=== PATIENT | female | born 1980 | race American Indian/Alaskan Native ===

== ENCOUNTER 2017-08-13 05:42 | Inpatient (IN) | payer BC, MEDICAID ==
[2017-08-13] MEDS ORDERED: LACTATED RINGERS 1,000 ML ONE ×4 (07:00→21:13)
[2017-08-13] MEDS ORDERED: LACTATED RINGERS 500 ML IV ONE (07:32)
[2017-08-13 08:10] LABS: Mean Corpuscular HGB Conc 33 % (30-34); Mean Corpuscular Hemoglobin 29 pg (28-32); Mean Corpuscular Volume 88 fl (79-97); Platelet Count 301 K/mm3 (140-440); Red Blood Count 3.76 M/mm3 (3.65-5.03); Red Cell Distribution Width 14.7 % (13.2-15.2)
[2017-08-13 08:20] LABS: Bilirubin,Urine NEG (Negative); Blood,Urine NEG (Negative); Color,Urine Yellow (Yellow); Mucus,Urine 1+ /HPF; Protein,Urine <15 mg/dL mg/dL (Negative); Urobilinogen,Urine < 2.0 mg/dL (<2.0)
[2017-08-13 08:27] LABS: Alanine Aminotransferase 11 units/L (7-56); Uric Acid 4.3 mg/dL (3.5-7.6)
[2017-08-13] MEDS ORDERED: SUBLIMAZE IV ONE (09:00)
[2017-08-13] MEDS ORDERED: LACTATED RINGERS 1,000 ML IV ONE ×2 (09:00)
--- NOTE | 2017-08-13 09:42 | History and Physical Report ---
History of Present Illness Date of examination: 08/13/17 Chief complaint: Contractions that started at 1a today History of present illness: Past History : 5 Term Births: 4 Living Children: 3 Para: 4 Aborta: 0 # 1 Delivery date: 1997 Weeks Gestation: term labor: no Delivery type: Anesthesia type: epidural Delivery location: [place] Sex: Male weight: 6#1 Comments: high b/p, abruption, child with CP, passed 2016 # 2 Delivery date: 2000 Weeks Gestation: term labor: no Delivery type: Anesthesia type: epidural Delivery location: [facility] Infant Sex: Male weight: 7#4 Comments: no complications # 3 Delivery date: 2001 Weeks Gestation: term labor: no Delivery type: Anesthesia type: epidural Delivery location: [place] Sex: Male weight: 6# Comments: no complications # 4 Delivery date: 2013 Weeks Gestation: term labor: no Delivery type: Anesthesia type: epidural Delivery location: [facility] Sex: Female weight: 7#7 Comments: no complications Past Medical History: htn- unknown med, managed by PCP Dr. 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 of genital herpes: no Partner hx. of genital herpes: no Rash, Viral, or Febrile illness since last LMP? no Varicella/Chicken Pox Status: Previous Disease Genetic History Congenital Heart Defect: Mom: no Dad: no Eliezer Disease: Mom: no Dad: no Thalassemia Mom: no Dad: no Neural Tube Defect Mom: no Dad: no Down's Syndrome Mom: no Dad: no Jame-Sachs Mom: no Dad: no Sickle Cell Disease/Trait Mom: no Dad: no Hemophilia Mom: no Dad: no Muscular Dystrophy Mom: no Dad: no Cystic Fibrosis Mom: no Dad: no Elina Chorea Mom: no Dad: no Mental Retardation Mom: no Dad: no Fragile X Mom: no Dad: no Other Genetic/Chromosomal Disorder Mom: no Dad: no Child w/other defect Mom: no Dad: no Enviromental Exposures Xray Exposure: no Medication, drug, or alcohol use since LMP: no Chemical/Other Exposure: no Exposure to Cat Liter: no Hx of Parvovirus (Fifth Disease): no Occupational Exposure to Children: none Active Medications (reviewed today): None Current Allergies (reviewed today): * ASPIRIN (Moderate) Past History - Obstetrical History Expected Date of Delivery: 09/15/17 (based on 20weeks US, confirmed by MFM) Actual Gestation: 35 Week(s) 2 Day(s) : 5 Para: 3 Hx # Term Pregnancies: 3 Medications and Allergies Allergies Allergy/AdvReac Type Severity Reaction Status Date / Time aspirin Allergy Hives Verified 05/08/15 14:11 Home Medications Medication Instructions Recorded Confirmed Last Taken Type Nifedipine 60 mg PO QDAY 08/13/17 08/13/17 08/12/17 10:00 History Active Meds: Active Medications Betamethasone Acet/Betameth SodPhos (Celestone Soluspan) 12 mg IM Q24HR [facility] Last Admin: 08/13/17 09:13 Dose: 12 mg Lactated Ringer's (Lactated Ringers) 1,000 mls @ 500 mls/hr IV ONCE ONE Stop: 08/13/17 10:59 Last Admin: 08/13/17 09:35 Dose: 500 mls/hr Lactated Ringer's (Lactated Ringers) 1,000 mls @ 999 mls/hr IV BOLUS ONE Stop: 08/13/17 10:00 Nifedipine (Procardia Xl) 60 mg PO QDAY [facility] Review of Systems All systems: negative Genitourinary: contractions - Vital Signs Vital signs: Vital Signs Pulse BP 71 165/102 08/13/17 07:30 08/13/17 07:30 Temp Pulse Resp BP Pulse Ox 98.6 F 85 18 135/95 100 08/13/17 07:36 08/13/17 09:32 08/13/17 09:30 08/13/17 09:32 08/13/17 08:12 - Physical Exam Breasts: Positive: deferred Cardiovascular: Regular rate Lungs: Positive: Normal air movement Abdomen: Positive: normal appearance, soft Genitourinary (Female): Positive: normal external genitalia, normal perenium Vulva: both: normal Uterus: Positive: enlarged Anus/Rectum: Positive: normal perianal skin Extremities: Positive: normal. Negative: tenderness, edema Deep Tendon Reflex Grade: Normal +2 - Obstetrical FHR: category 1 Uterine Contraction Monitor Mode: External Cervical Dilatation: 3 (per RN) Uterine Contraction Pattern: Irregular Uterine Contraction Intensity: Moderate Results Result Diagrams: 08/13/17 07:50 08/13/17 07:50 Abnormal lab results 08/13/17 08/13/17 Range/Units 07:50 07:50 Creatinine 0.4 L (0.7-1.2) mg/dL Lactate Dehydrogenase 260 H (91-180) units/L U Epithel Cells (Auto) 14.0 H (0-13.0) /HPF All other labs normal. Assessment and Plan - Patient Problems (1) 35 weeks gestation of Current Visit: Yes Status: Acute (2) contractions Current Visit: Yes Status: Acute Plan to address problem: 3cm, will observe for now. Proceed with steroids (3) Smoker Current Visit: Yes Status: Chronic (4) Late care Current Visit: Yes Status: Acute (5) Hypertension affecting in third trimester Current Visit: Yes Status: Chronic Plan to address problem: Elevated BP's noted, normal PIH labs; she has not taken Procardia today.
[2017-08-13] MEDS ORDERED: CELESTONE SOLUSPAN IM SCH (10:00)
[2017-08-13] MEDS ORDERED: PROCARDIA XL PO SCH (10:00)
--- NOTE | 2017-08-13 10:22 | Ultrasound Report ---
History: Presentation. Findings: Gestation: Single Position: Cephalic Heart Rate: 139 BPM Cervical length: cm (Normal > 3 cm)
--- NOTE | 2017-08-13 14:58 | Progress Note ---
Assessment and Plan - Patient Problems (1) 35 weeks gestation of Current Visit: Yes Status: Acute (2) contractions Current Visit: Yes Status: Acute Plan to address problem: No cervical change, continue close observation (3) Smoker Current Visit: Yes Status: Chronic (4) Late care Current Visit: Yes Status: Acute (5) Hypertension affecting in third trimester Current Visit: Yes Status: Chronic Plan to address problem: BP's continue to be elevated after taking Procardia, will proceed with 24hr urine collection Subjective - Subjective Date of service: 08/13/17 Principal diagnosis: IUP@ 35weeks, PTC, hypertension Interval history: Past Surgical History: 07/2016 ex-lap LSO ovarian torsion Patient reports: contractions, no new complaints Objective - Vital Signs Vital Signs: Vital Signs - 12hr 08/13/17 08/13/17 08/13/17 07:30 07:31 07:33 Temperature Pulse Rate 71 74 70 Respiratory Rate Blood Pressure 165/102 154/89 Blood Pressure [Right] O2 Sat by Pulse 98 Oximetry 08/13/17 08/13/17 08/13/17 07:36 07:51 07:52 Temperature 98.6 F Pulse Rate 71 67 72 Respiratory 20 Rate Blood Pressure 151/83 Blood Pressure 151/83 [Right] O2 Sat by Pulse 98 98 Oximetry 08/13/17 08/13/17 08/13/17 07:57 08:02 08:07 Temperature Pulse Rate 78 78 71 Respiratory Rate Blood Pressure 144/83 Blood Pressure [Right] O2 Sat by Pulse 98 99 100 Oximetry 08/13/17 08/13/17 08/13/17 08:12 08:16 08:31 Temperature Pulse Rate 74 88 75 Respiratory Rate Blood Pressure 152/83 164/92 Blood Pressure [Right] O2 Sat by Pulse 100 Oximetry 08/13/17 08/13/17 08/13/17 08:46 09:01 09:30 Temperature Pulse Rate 77 71 Respiratory 18 Rate Blood Pressure 162/103 147/97 135/95 Blood Pressure [Right] O2 Sat by Pulse Oximetry 08/13/17 08/13/17 08/13/17 09:32 10:05 10:06 Temperature 97.1 F L Pulse Rate 85 70 70 Respiratory 20 Rate Blood Pressure 135/95 160/84 Blood Pressure 160/84 [Right] O2 Sat by Pulse 93 95 Oximetry 05/20/18 05/20/18 05/2018 10:11 10:16 10:17 Temperature Pulse Rate 67 74 75 Respiratory Rate Blood Pressure Blood Pressure [Right] O2 Sat by Pulse 94 95 94 Oximetry 05/20/18 05/20/18 05/20/18 10:21 10:22 10:23 Temperature Pulse Rate 75 61 66 Respiratory Rate Blood Pressure 141/89 Blood Pressure [Right] O2 Sat by Pulse 96 94 Oximetry 20/18 05/20/18 05/20/18 10:24 10:26 10:31 Temperature Pulse Rate 69 68 65 Respiratory Rate Blood Pressure 139/95 Blood Pressure [Right] O2 Sat by Pulse 95 97 Oximetry 20/18 05/20/18 05/20/18 10:36 10:37 10:39 Temperature Pulse Rate 70 74 86 Respiratory Rate Blood Pressure 142/90 Blood Pressure [Right] O2 Sat by Pulse 96 94 Oximetry 20 05/20/18 05/20/18 10:41 10:46 10:51 Temperature Pulse Rate 67 72 76 Respiratory Rate Blood Pressure Blood Pressure [Right] O2 Sat by Pulse 96 95 98 Oximetry 18 05/20/18 05/2018 10:52 10:56 11:01 Temperature Pulse Rate 74 76 80 Respiratory Rate Blood Pressure 161/85 Blood Pressure [Right] O2 Sat by Pulse 97 97 Oximetry 18 05/20/18 05/2018 11:06 11:07 11:11 Temperature Pulse Rate 70 69 76 Respiratory Rate Blood Pressure 167/100 Blood Pressure [Right] O2 Sat by Pulse 98 98 Oximetry 08/13/17 05/20/18 05/2018 11:16 11:21 11:26 Temperature Pulse Rate 67 78 74 Respiratory Rate Blood Pressure 171/98 Blood Pressure [Right] O2 Sat by Pulse 98 97 98 Oximetry 20/18 05/20/18 05/20/18 11:31 11:50 11:51 Temperature Pulse Rate 74 83 68 Respiratory Rate Blood Pressure 140/90 Blood Pressure [Right] O2 Sat by Pulse 98 97 Oximetry 20/18 05/20/18 05/20/18 11:55 12:00 12:05 Temperature Pulse Rate 75 93 H 77 Respiratory Rate Blood Pressure Blood Pressure [Right] O2 Sat by Pulse 97 98 98 Oximetry 05/2008/13/17 08/13/17 12:10 12:15 12:20 Temperature Pulse Rate 65 70 65 Respiratory Rate Blood Pressure Blood Pressure [Right] O2 Sat by Pulse 100 98 97 Oximetry 08/13/1718 / 12:25 12:30 12:35 Temperature Pulse Rate 67 67 68 Respiratory Rate Blood Pressure Blood Pressure [Right] O2 Sat by Pulse 98 98 100 Oximetry 08/13/1718 / 12:37 12:40 12:44 Temperature Pulse Rate 87 67 71 Respiratory Rate Blood Pressure Blood Pressure [Right] O2 Sat by Pulse 94 96 92 Oximetry 08/13/17/20/18 05/20 12:45 12:50 12:52 Temperature Pulse Rate 72 75 75 Respiratory Rate Blood Pressure Blood Pressure [Right] O2 Sat by Pulse 95 93 94 Oximetry 08/13/17/20/18 / 12:53 12:55 13:00 Temperature Pulse Rate 75 79 77 Respiratory Rate Blood Pressure 121/65 Blood Pressure [Right] O2 Sat by Pulse 93 94 Oximetry 08/13/17 08/13/17 08/13/17 13:05 13:07 13:10 Temperature Pulse Rate 76 77 82 Respiratory Rate Blood Pressure Blood Pressure [Right] O2 Sat by Pulse 93 93 93 Oximetry 08/13/1718 08/13/17 13:15 13:20 13:21 Temperature Pulse Rate 79 68 83 Respiratory Rate Blood Pressure Blood Pressure [Right] O2 Sat by Pulse 93 96 93 Oximetry 08/13/1718 08/13/17 13:25 13:30 13:34 Temperature Pulse Rate 77 76 76 Respiratory Rate Blood Pressure Blood Pressure [Right] O2 Sat by Pulse 91 93 94 Oximetry 08/13/1720/18 052018 13:35 13:40 13:45 Temperature Pulse Rate 75 76 77 Respiratory Rate Blood Pressure Blood Pressure [Right] O2 Sat by Pulse 94 94 94 Oximetry 08/13/17/20/18 20 13:50 13:52 13:55 Temperature Pulse Rate 80 80 76 Respiratory Rate Blood Pressure 114/58 Blood Pressure [Right] O2 Sat by Pulse 94 93 Oximetry 08/13/1708/13/18 / 13:56 14:00 14:04 Temperature Pulse Rate 76 84 76 Respiratory Rate Blood Pressure Blood Pressure [Right] O2 Sat by Pulse 94 95 94 Oximetry 08/13/17 08/13/17 08/13/17 14:05 14:09 14:10 Temperature Pulse Rate 77 74 74 Respiratory Rate Blood Pressure Blood Pressure [Right] O2 Sat by Pulse 94 94 93 Oximetry 08/13/17 08/13/17 08/13/17 14:15 14:20 14:25 Temperature Pulse Rate 70 72 73 Respiratory Rate Blood Pressure Blood Pressure [Right] O2 Sat by Pulse 93 95 97 Oximetry 08/13/17 08/13/17 08/13/17 14:30 14:36 14:41 Temperature Pulse Rate 73 68 69 Respiratory Rate Blood Pressure Blood Pressure [Right] O2 Sat by Pulse 97 99 97 Oximetry 08/13/17 08/13/17 08/13/17 14:46 14:51 14:53 Temperature Pulse Rate 81 84 77 Respiratory Rate Blood Pressure 156/73 Blood Pressure [Right] O2 Sat by Pulse 97 97 Oximetry 08/13/17 14:56 Temperature Pulse Rate 72 Respiratory Rate Blood Pressure Blood Pressure [Right] O2 Sat by Pulse 97 Oximetry - Exam Breasts: deferred Lungs: Normal air movement Abdomen: Present: normal appearance, soft. Absent: tenderness Vulva: both: normal Uterus: Absent: tenderness FHR: category 1 Uterine Contraction Monitor Mode: External Cervical Dilatation: 3 Cervical Effacement Percentage: 50 station: -3, soft, posterior Uterine Contraction Pattern: Irregular Extremities: normal Deep Tendon Reflex Grade: Normal +2 - Labs Labs: Abnormal Labs 08/13/17 08/13/17 07:50 07:50 Creatinine 0.4 L Lactate Dehydrogenase 260 H U Epithel Cells (Auto) 14.0 H Laboratory Results - last 24 hr 08/13/17 08/13/17 08/13/17 07:50 07:50 07:50 WBC 7.0 RBC 3.76 Hgb 11.0 Hct 33.0 MCV 88 MCH 29 MCHC 33 RDW 14.7 Plt Count 301 Creatinine 0.4 L Estimated GFR > 60 Uric Acid 4.3 AST 27 ALT 11 Lactate Dehydrogenase 260 H Urine Color Yellow Urine Turbidity Clear Urine pH 6.0 Ur Specific [place] 1.027 Urine Protein <15 mg/dl Urine Glucose (UA) Neg Urine Ketones Neg Urine Blood Neg Urine Nitrite Neg Urine Bilirubin Neg Urine Urobilinogen < 2.0 Ur Leukocyte Esterase Neg Urine WBC (Auto) 1.0 Urine RBC (Auto) 2.0 U Epithel Cells (Auto) 14.0 H Urine Mucus 1+ Blood Type Antibody Screen 08/13/17 07:50 WBC RBC Hgb Hct MCV MCH MCHC RDW Plt Count Creatinine Estimated GFR Uric Acid AST ALT Lactate Dehydrogenase Urine Color Urine Turbidity Urine pH Ur Specific [place] Urine Protein Urine Glucose (UA) Urine Ketones Urine Blood Urine Nitrite Urine Bilirubin Urine Urobilinogen Ur Leukocyte Esterase Urine WBC (Auto) Urine RBC (Auto) U Epithel Cells (Auto) Urine Mucus Blood Type B POSITIVE Antibody Screen Negative
[2017-08-13] MEDS ORDERED: TYLENOL PO PRN ×3 (16:01→23:47)
[2017-08-13] MEDS ORDERED: STADOL IV ONE ×2 (16:09→19:50)
--- NOTE | 2017-08-13 19:54 | Event Note ---
Date: 08/13/17 cervical now /-2 by RN, b/c she's on Procardia will hold MgSO4 and continue close observation.
--- NOTE | 2017-08-13 21:06 | Progress Note ---
Assessment and Plan Anticipate VD - Patient Problems (1) 35 weeks gestation of Current Visit: Yes Status: Acute (2) contractions Current Visit: Yes Status: Acute (3) Smoker Current Visit: Yes Status: Chronic (4) Late care Current Visit: Yes Status: Acute (5) Hypertension affecting in third trimester Current Visit: Yes Status: Chronic Subjective - Subjective Date of service: 08/13/17 Principal diagnosis: IUP@ 35weeks, PTC, hypertension Interval history: C/o worsening contractions, unresponsive to stadol Patient reports: contractions, no new complaints Objective - Vital Signs Vital Signs: Vital Signs - 12hr 08/13/17 08/13/17 08/13/17 09:30 09:32 10:05 Temperature Pulse Rate 85 70 Respiratory 18 Rate Blood Pressure 135/95 135/95 Blood Pressure [Right] O2 Sat by Pulse 93 Oximetry 08/13/17 08/13/17 08/13/17 10:06 10:11 10:16 Temperature 97.1 F L Pulse Rate 70 67 74 Respiratory 20 Rate Blood Pressure 160/84 Blood Pressure 160/84 [Right] O2 Sat by Pulse 95 94 95 Oximetry 08/13/17 08/13/17 08/13/17 10:17 10:21 10:22 Temperature Pulse Rate 75 75 61 Respiratory Rate Blood Pressure 141/89 Blood Pressure [Right] O2 Sat by Pulse 94 96 Oximetry 08/13/17 08/13/17 08/13/17 10:23 10:24 10:26 Temperature Pulse Rate 66 69 68 Respiratory Rate Blood Pressure 139/95 Blood Pressure [Right] O2 Sat by Pulse 94 95 Oximetry 08/13/17 08/13/17 08/13/17 10:31 10:36 10:37 Temperature Pulse Rate 65 70 74 Respiratory Rate Blood Pressure 142/90 Blood Pressure [Right] O2 Sat by Pulse 97 96 Oximetry 08/13/17 08/13/17 08/13/17 10:39 10:41 10:46 Temperature Pulse Rate 86 67 72 Respiratory Rate Blood Pressure Blood Pressure [Right] O2 Sat by Pulse 94 96 95 Oximetry 08/13/17 08/13/17 08/13/17 10:51 10:52 10:56 Temperature Pulse Rate 76 74 76 Respiratory Rate Blood Pressure 161/85 Blood Pressure [Right] O2 Sat by Pulse 98 97 Oximetry 08/13/17 08/13/17 08/13/17 11:01 11:06 11:07 Temperature Pulse Rate 80 70 69 Respiratory Rate Blood Pressure 167/100 Blood Pressure [Right] O2 Sat by Pulse 97 98 Oximetry 08/13/1718 / 11:11 11:16 11:21 Temperature Pulse Rate 76 67 78 Respiratory Rate Blood Pressure 171/98 Blood Pressure [Right] O2 Sat by Pulse 98 98 97 Oximetry 08/13/1720/18 / 11:26 11:31 11:50 Temperature Pulse Rate 74 74 83 Respiratory Rate Blood Pressure Blood Pressure [Right] O2 Sat by Pulse 98 98 97 Oximetry 08/13/17/20/18 / 11:51 11:55 12:00 Temperature Pulse Rate 68 75 93 H Respiratory Rate Blood Pressure 140/90 Blood Pressure [Right] O2 Sat by Pulse 97 98 Oximetry 08/13/1718 / 12:05 12:10 12:15 Temperature Pulse Rate 77 65 70 Respiratory Rate Blood Pressure Blood Pressure [Right] O2 Sat by Pulse 98 100 98 Oximetry 08/13/17/18 08/13/17 12:20 12:25 12:30 Temperature Pulse Rate 65 67 67 Respiratory Rate Blood Pressure Blood Pressure [Right] O2 Sat by Pulse 97 98 98 Oximetry 08/13/17 08/13/17 08/13/17 12:35 12:37 12:40 Temperature Pulse Rate 68 87 67 Respiratory Rate Blood Pressure Blood Pressure [Right] O2 Sat by Pulse 100 94 96 Oximetry 08/13/1718 08/13/17 12:44 12:45 12:50 Temperature Pulse Rate 71 72 75 Respiratory Rate Blood Pressure Blood Pressure [Right] O2 Sat by Pulse 92 95 93 Oximetry 08/13/17 05/20/18 20 12:52 12:53 12:55 Temperature Pulse Rate 75 75 79 Respiratory Rate Blood Pressure 121/65 Blood Pressure [Right] O2 Sat by Pulse 94 93 Oximetry 08/13/17 05/20/18 /20 13:00 13:05 13:07 Temperature Pulse Rate 77 76 77 Respiratory Rate Blood Pressure Blood Pressure [Right] O2 Sat by Pulse 94 93 93 Oximetry 08/13/17 05/20/18 08/13/17 13:10 13:15 13:20 Temperature Pulse Rate 82 79 68 Respiratory Rate Blood Pressure Blood Pressure [Right] O2 Sat by Pulse 93 93 96 Oximetry 08/13/17/18 08/13/17 13:21 13:25 13:30 Temperature Pulse Rate 83 77 76 Respiratory Rate Blood Pressure Blood Pressure [Right] O2 Sat by Pulse 93 91 93 Oximetry 08/13/17//18 / 13:34 13:35 13:40 Temperature Pulse Rate 76 75 76 Respiratory Rate Blood Pressure Blood Pressure [Right] O2 Sat by Pulse 94 94 94 Oximetry 08/13/17/18 / 13:45 13:50 13:52 Temperature Pulse Rate 77 80 80 Respiratory Rate Blood Pressure 114/58 Blood Pressure [Right] O2 Sat by Pulse 94 94 Oximetry 08/13/17 08/13/17/ 13:55 13:56 14:00 Temperature Pulse Rate 76 76 84 Respiratory Rate Blood Pressure Blood Pressure [Right] O2 Sat by Pulse 93 94 95 Oximetry 08/13/17 08/13/17 08/13/17 14:04 14:05 14:09 Temperature Pulse Rate 76 77 74 Respiratory Rate Blood Pressure Blood Pressure [Right] O2 Sat by Pulse 94 94 94 Oximetry 08/13/17 08/13/17 08/13/17 14:10 14:15 14:20 Temperature Pulse Rate 74 70 72 Respiratory Rate Blood Pressure Blood Pressure [Right] O2 Sat by Pulse 93 93 95 Oximetry 08/13/17 08/13/17/ 14:25 14:30 14:36 Temperature Pulse Rate 73 73 68 Respiratory Rate Blood Pressure Blood Pressure [Right] O2 Sat by Pulse 97 97 99 Oximetry 08/13/17 08/13/17 08/13/17 14:41 14:46 14:51 Temperature Pulse Rate 69 81 84 Respiratory Rate Blood Pressure Blood Pressure [Right] O2 Sat by Pulse 97 97 97 Oximetry 08/13/17 08/13/17 08/13/17 14:53 14:56 15:01 Temperature Pulse Rate 77 72 73 Respiratory Rate Blood Pressure 156/73 Blood Pressure [Right] O2 Sat by Pulse 97 97 Oximetry 08/13/17 08/13/17/ 15:06 15:11 15:16 Temperature Pulse Rate 69 67 66 Respiratory Rate Blood Pressure Blood Pressure [Right] O2 Sat by Pulse 97 98 98 Oximetry 08/13/17 08/13/17 08/13/17 15:21 15:26 15:27 Temperature Pulse Rate 66 69 83 Respiratory Rate Blood Pressure Blood Pressure [Right] O2 Sat by Pulse 98 97 91 Oximetry 08/13/17 08/13/17 08/13/17 15:31 15:36 15:41 Temperature Pulse Rate 72 67 69 Respiratory Rate Blood Pressure Blood Pressure [Right] O2 Sat by Pulse 98 97 98 Oximetry 08/13/17 08/13/17 08/13/17 15:46 15:54 15:55 Temperature Pulse Rate 76 68 65 Respiratory Rate Blood Pressure 143/82 Blood Pressure [Right] O2 Sat by Pulse 98 97 Oximetry 08/13/17 08/13/17 08/13/17 15:59 16:00 16:05 Temperature Pulse Rate 71 66 76 Respiratory Rate Blood Pressure Blood Pressure [Right] O2 Sat by Pulse 92 92 96 Oximetry 08/13/17 08/13/17 08/13/17 16:09 16:10 16:15 Temperature Pulse Rate 72 63 74 Respiratory Rate Blood Pressure Blood Pressure [Right] O2 Sat by Pulse 93 97 96 Oximetry 08/13/17 08/13/17 08/13/17 16:20 16:22 16:25 Temperature Pulse Rate 70 79 74 Respiratory Rate Blood Pressure Blood Pressure [Right] O2 Sat by Pulse 100 94 97 Oximetry 08/13/17 08/13/17 08/13/17 16:30 16:33 16:35 Temperature Pulse Rate 83 73 Respiratory 18 Rate Blood Pressure Blood Pressure [Right] O2 Sat by Pulse 97 96 Oximetry 08/13/17 08/13/17 08/13/17 16:45 16:46 16:51 Temperature Pulse Rate 69 78 73 Respiratory Rate Blood Pressure Blood Pressure [Right] O2 Sat by Pulse 94 96 94 Oximetry 08/13/17 08/13/17 08/13/17 16:52 16:56 16:57 Temperature Pulse Rate 73 68 73 Respiratory Rate Blood Pressure 150/79 Blood Pressure [Right] O2 Sat by Pulse 95 94 Oximetry 08/13/17 08/13/17 08/13/17 17:01 17:04 17:06 Temperature Pulse Rate 72 65 70 Respiratory Rate Blood Pressure Blood Pressure [Right] O2 Sat by Pulse 94 94 93 Oximetry 08/13/17 08/13/17 08/13/17 17:11 17:14 17:16 Temperature Pulse Rate 67 71 70 Respiratory Rate Blood Pressure Blood Pressure [Right] O2 Sat by Pulse 93 93 93 Oximetry 08/13/17 08/13/17 08/13/17 17:21 17:26 17:31 Temperature Pulse Rate 75 72 70 Respiratory Rate Blood Pressure Blood Pressure [Right] O2 Sat by Pulse 93 92 92 Oximetry 08/13/17 08/13/17 08/13/17 17:36 17:41 17:46 Temperature Pulse Rate 78 72 75 Respiratory Rate Blood Pressure Blood Pressure [Right] O2 Sat by Pulse 90 92 90 Oximetry 08/13/17 08/13/17 08/13/17 17:51 17:52 17:56 Temperature Pulse Rate 69 67 72 Respiratory Rate Blood Pressure 153/86 Blood Pressure [Right] O2 Sat by Pulse 93 92 Oximetry 08/13/17 08/13/17 08/13/17 18:01 18:02 18:06 Temperature Pulse Rate 74 74 72 Respiratory Rate Blood Pressure Blood Pressure [Right] O2 Sat by Pulse 95 94 95 Oximetry 08/13/17 08/13/17 08/13/17 18:11 18:14 18:16 Temperature Pulse Rate 73 60 68 Respiratory Rate Blood Pressure Blood Pressure [Right] O2 Sat by Pulse 95 92 96 Oximetry 08/13/17 08/13/17 08/13/17 18:19 18:21 18:26 Temperature Pulse Rate 83 66 91 H Respiratory Rate Blood Pressure Blood Pressure [Right] O2 Sat by Pulse 93 97 96 Oximetry 08/13/17 08/13/17 08/13/17 18:31 18:36 18:40 Temperature Pulse Rate 62 85 60 Respiratory Rate Blood Pressure Blood Pressure [Right] O2 Sat by Pulse 69 L 100 73 L Oximetry 08/13/17 08/13/17 08/13/17 18:41 18:50 18:51 Temperature Pulse Rate 81 70 70 Respiratory Rate Blood Pressure Blood Pressure [Right] O2 Sat by Pulse 86 94 93 Oximetry 08/13/17 08/13/17 08/13/17 18:52 18:56 19:01 Temperature Pulse Rate 71 77 84 Respiratory Rate Blood Pressure 132/71 Blood Pressure [Right] O2 Sat by Pulse 94 98 Oximetry 08/13/17 08/13/17 08/13/17 19:04 19:06 19:11 Temperature Pulse Rate 83 81 75 Respiratory Rate Blood Pressure Blood Pressure [Right] O2 Sat by Pulse 94 93 96 Oximetry 08/13/17 08/13/17 08/13/17 19:14 19:16 19:21 Temperature Pulse Rate 91 H 80 75 Respiratory Rate Blood Pressure Blood Pressure [Right] O2 Sat by Pulse 93 96 94 Oximetry 08/13/17 08/13/17 08/13/17 19:23 19:26 19:31 Temperature Pulse Rate 96 H 80 84 Respiratory Rate Blood Pressure Blood Pressure [Right] O2 Sat by Pulse 93 96 100 Oximetry 08/13/17 08/13/17 08/13/17 19:34 19:36 19:38 Temperature 98.3 F Pulse Rate 79 73 78 Respiratory 22 Rate Blood Pressure 135/65 Blood Pressure 135/65 [Right] O2 Sat by Pulse 94 96 97 Oximetry 08/13/17 08/13/17 08/13/17 19:41 19:46 19:51 Temperature Pulse Rate 76 76 79 Respiratory Rate Blood Pressure Blood Pressure [Right] O2 Sat by Pulse 97 96 94 Oximetry 08/13/17 08/13/17 08/13/17 19:52 19:56 19:59 Temperature Pulse Rate 75 79 72 Respiratory Rate Blood Pressure 152/70 Blood Pressure [Right] O2 Sat by Pulse 98 93 Oximetry 08/13/17 08/13/17 08/13/17 20:01 20:02 20:06 Temperature Pulse Rate 78 84 Respiratory 22 Rate Blood Pressure Blood Pressure [Right] O2 Sat by Pulse 91 92 Oximetry 08/13/17 08/13/17 08/13/17 20:11 20:15 20:16 Temperature Pulse Rate 76 74 73 Respiratory Rate Blood Pressure Blood Pressure [Right] O2 Sat by Pulse 93 94 94 Oximetry 08/13/17 08/13/17 08/13/17 20:20 20:21 20:26 Temperature Pulse Rate 76 89 80 Respiratory Rate Blood Pressure Blood Pressure [Right] O2 Sat by Pulse 94 94 92 Oximetry 08/13/17 08/13/17 08/13/17 20:31 20:32 20:36 Temperature Pulse Rate 80 76 Respiratory 14 Rate Blood Pressure Blood Pressure [Right] O2 Sat by Pulse 94 93 Oximetry 08/13/17 08/13/17 08/13/17 20:52 20:56 20:57 Temperature Pulse Rate 92 H 97 H 123 H Respiratory Rate Blood Pressure 137/85 Blood Pressure [Right] O2 Sat by Pulse 93 88 Oximetry 08/13/17 21:02 Temperature Pulse Rate 102 H Respiratory Rate Blood Pressure Blood Pressure [Right] O2 Sat by Pulse 92 Oximetry - Exam Breasts: deferred Lungs: Normal air movement Abdomen: Present: soft Vulva: both: normal FHR: category 2 Uterine Contraction Monitor Mode: External Cervical Dilatation: 6 (after verbal consent AROM with ISE placed without difficulty, scant clear) Cervical Effacement Percentage: 90 station: -1 Uterine Contraction Pattern: Irregular - Labs Labs: Abnormal Labs 08/13/17 08/13/17 07:50 07:50 Creatinine 0.4 L Lactate Dehydrogenase 260 H U Epithel Cells (Auto) 14.0 H Laboratory Results - last 24 hr 08/13/17 08/13/17 08/13/17 07:50 07:50 07:50 WBC 7.0 RBC 3.76 Hgb 11.0 Hct 33.0 MCV 88 MCH 29 MCHC 33 RDW 14.7 Plt Count 301 Creatinine 0.4 L Estimated GFR > 60 Uric Acid 4.3 AST 27 ALT 11 Lactate Dehydrogenase 260 H Urine Color Yellow Urine Turbidity Clear Urine pH 6.0 Ur Specific [place] 1.027 Urine Protein <15 mg/dl Urine Glucose (UA) Neg Urine Ketones Neg Urine Blood Neg Urine Nitrite Neg Urine Bilirubin Neg Urine Urobilinogen < 2.0 Ur Leukocyte Esterase Neg Urine WBC (Auto) 1.0 Urine RBC (Auto) 2.0 U Epithel Cells (Auto) 14.0 H Urine Mucus 1+ Blood Type Antibody Screen 08/13/17 07:50 WBC RBC Hgb Hct MCV MCH MCHC RDW Plt Count Creatinine Estimated GFR Uric Acid AST ALT Lactate Dehydrogenase Urine Color Urine Turbidity Urine pH Ur Specific [place] Urine Protein Urine Glucose (UA) Urine Ketones Urine Blood Urine Nitrite Urine Bilirubin Urine Urobilinogen Ur Leukocyte Esterase Urine WBC (Auto) Urine RBC (Auto) U Epithel Cells (Auto) Urine Mucus Blood Type B POSITIVE Antibody Screen Negative
[2017-08-13] MEDS ORDERED: PITOCin/NS 20 UNIT/1000ML DRIP 20,000 MILLIUNITS/1,000 ML BAG IV ONE (21:14)
[2017-08-13] MEDS ORDERED: BRETHINE ONE (21:30)
[2017-08-13] MEDS ORDERED: BICITRA ONE (21:33)
[2017-08-13] MEDS ORDERED: PEPCID IV ONE ×2 (21:34→21:40)
[2017-08-13] MEDS ORDERED: REGLAN ONE (21:34)
[2017-08-13] MEDS ORDERED: ePHEDrine SULFATE ONE (21:44)
[2017-08-13] MEDS ORDERED: ZOFRAN ONE (21:51)
[2017-08-13] MEDS ORDERED: NEO SYNEPHRINE/NS Syringe(OR USE) IV ONE (21:51)
[2017-08-13] MEDS ORDERED: SUBLIMAZE ONE (21:57)
[2017-08-13] MEDS ORDERED: DIPRIVAN 10 MG/ML IV ONE (21:57)
--- NOTE | 2017-08-13 23:11 | Operative Report ---
Operative Report Operative Report: Date: 08/13/2017 Preoperative diagnosis: 1. Intrauterine at 35 weeks and 2 days 2. labor 3. Nonreassuring heart rate tracing 4. Chronic hypertension 5. Smoker 6. Late care Postoperative diagnosis: 1. Intrauterine at 35 weeks and 2 days 2. labor 3. Nonreassuring heart rate tracing, tight body cord 4. Chronic hypertension 5. Smoker 6. Late care Procedure: Low uterine transverse incision for delivery Surgeon: Caprice Valdivia MD Numerical Tool Programmer: Jose Mims Anesthesia: Spinal epidural Anesthesiologist: Dr. Webster Estimated blood loss: 500 mL Urine out: [] mL Findings: Live born female . Weight 5 lbs. 12 oz. Apgars 8 at 1 minute and 8 at 9 minutes. Uterus grossly normal, thin adhesions noted involving the right tube, grossly normal right ovary, absent left tube and ovary consistent with patient's past surgical history Procedure: Patient was checked and found to be 6 cm. She was very uncomfortable and moving around in the bed. It was difficult to monitor the baby, verbal consent was obtained, artificial rupture of membranes was performed and ISE was placed. Heart tones are sporadic and intermittently reassuring. The decision was made to attempt an epidural however patient complained of pressure. She was 7 cm however still -2. heart tones decreased to the 60s to 80s without response to intrauterine resuscitative measures. The decision was made to proceed with delivery. On arrival to the OR heart tones were noted to be 110s to 130s and therefore she was placed in the sitting position and the epidural was completed. During epidural placement and multiple variable decelerations were noted and once she was placed the supine position there was still no cervical change. The decision was made to proceed with delivery. She was then placed in the left lateral tilt position, and prepped and draped in the usual sterile fashion. Timeout was performed, and an appropriate level of anesthesia was noted, a Pfannenstiel incision was made and extended to the fascia which was incised and extended in the lateral directions. The overlying fascia was sharply dissected away from the underlying rectus muscles in the superior and inferior directions. The midline was entered bluntly. The vesicouterine fold was incised and with blunt dissection the bladder flap was created. A transverse incision was made in the lower uterine segment and extended in superiolateral direction with finger fractionation. Clear fluid was noted. The infant was delivered from cephalic position. Mouth and nose were bulb suctioned. Spontaneous cry and excellent tone were noted. Cord was doubly clamped and cut. The was given to /resuscitation team present. The placenta was manually extracted in order to be sent to pathology. The uterus was then exteriorized and cleared of any further products of conception or placental tissue. The incision was reapproximated using 0 Vicryl in a running interlocking stitch. The incision was further reinforced with suture of 0 Vicryl in imbricating fashion. Once hemostasis was noted, the uterus was allowed back into the pelvic cavity. The pelvis was irrigated with warm normal saline. Again hemostasis was noted . Surgicel applied for further hemostasis. Interceed was then placed to prevent adhesions. Then attention was turned to the rectus muscles. The rectus muscles reapproximated using 0 Vicryl in a simple interrupted stitch x 3. Once hemostasis was noted, the fascia was reapproximated using 0 Vicryl running stitch fashion. Subcuticular adipose tissue was reapproximated using 3-0 Vicryl interrupted to single stitch 3. Once hemostasis was noted skin incision was reapproximated using 4-0 Vicryl on a Lee needle in a subcuticular manner. Counts were correct 3. Patient tolerated procedure well state recovery room in stable condition.
[2017-08-13] MEDS ORDERED: LANSINOH TP PRN (23:47)
[2017-08-13] MEDS ORDERED: CYTOTEC PR PRN (23:47)
[2017-08-13] MEDS ORDERED: PITOCin/NS 20 UNIT/1000ML DRIP 20 UNITS/1,000 ML BAG IV SCH (23:47)
[2017-08-13] MEDS ORDERED: HEMABATE IM PRN (23:47)
[2017-08-13] MEDS ORDERED: TYLENOL PR PRN (23:47)
[2017-08-13] MEDS ORDERED: TUCKS PAD TP PRN (23:47)
[2017-08-13] MEDS ORDERED: DILAUDID IV PRN (23:47)
[2017-08-13] MEDS ORDERED: DILAUDID ONE (23:47)
[2017-08-13] MEDS ORDERED: D5LR 1,000 ML IV SCH (23:47)
[2017-08-13] MEDS ORDERED: SODIUM CHLORIDE FLUSH SYRINGE 10 ML IV NR (23:47)
[2017-08-13] MEDS ORDERED: ANCEF/NS 1 GM/50 ML 1 GM/50 ML BAG IV SCH (23:47)
[2017-08-13] MEDS ORDERED: MORPHINE IV PRN (23:47)
[2017-08-13] MEDS ORDERED: NARCAN 0.4 MG/1 ML IV PRN (23:47)
[2017-08-13] MEDS ORDERED: ZOFRAN IV PRN (23:47)
[2017-08-13] MEDS ORDERED: MYLICON PO PRN (23:47)
[2017-08-13] MEDS ORDERED: MILK OF MAGNESIA PO PRN (23:47)
[2017-08-13] MEDS ORDERED: PHENERGAN PR PRN (23:47)
[2017-08-14] MEDS: TORADOL IV PRN ×3 (00:55→16:08)
[2017-08-14] MEDS ORDERED: REGLAN IV ONE (01:42)
[2017-08-14] MEDS ORDERED: BICITRA PO ONE (01:42)
--- NOTE | 2017-08-14 05:52 | Progress Note ---
Assessment and Plan - Patient Problems (1) delivery delivered Onset Date: ~08/13/17 Current Visit: Yes Status: Acute Plan to address problem: Pt A&O X 3 Only voiced c/o was being hungry. Has not yet passed gas. VSS FF below umb Lochia small Dressing D&I. H&H pending Stable s/p section P: continue pathway; advance diet and activity as tolerated All questions addressed. Subjective - Subjective Date of service: 08/14/17 ("When can I eat?") Principal diagnosis: 8hr s/p cesearean section; hypertension Patient reports: voiding normally (yellow urine draining into rizo), pain well controlled [place]: doing well Objective - Vital Signs Latest vital signs: Vital Signs Temp Pulse Resp BP BP Pulse Ox 08/14/17 00:55 18 08/14/17 00:41 98.2 F 85 18 129/76 08/14/17 00:40 18 08/14/17 00:35 18 08/14/17 00:10 18 08/14/17 00:05 18 08/14/17 00:00 80 18 107/65 99 08/13/17 23:45 91 H 18 101/60 99 08/13/17 23:30 82 18 110/39 99 08/13/17 23:15 83 18 99/57 98 08/13/17 23:10 83 18 101/54 98 08/13/17 23:05 94 H 18 101/47 98 08/13/17 23:00 98.2 F 88 18 90/44 08/13/17 21:33 114 H 164/81 100 08/13/17 21:31 117 H 165/74 08/13/17 21:28 112 H 93 08/13/17 21:23 94 H 99 08/13/17 21:22 86 90 08/13/17 21:18 108 H 98 08/13/17 21:13 109 H 98 08/13/17 21:08 118 H 87 08/13/17 21:07 68 93 08/13/17 21:02 102 H 92 08/13/17 20:57 123 H 88 08/13/17 20:56 97 H 93 08/13/17 20:52 92 H 137/85 08/13/17 20:36 76 93 08/13/17 20:32 14 05/20/18 20:31 80 94 05/20/18 20:26 80 92 05/20/18 20:21 89 94 05/20/18 20:20 76 94 05/20/18 20:16 73 94 05/20/18 20:15 74 94 05/20/18 20:11 76 93 05/20/18 20:06 84 92 05/20/18 20:02 22 05/20/18 20:01 78 91 05/20/18 19:59 72 93 05/20/18 19:56 79 98 05/20/18 19:52 75 152/70 05/20/18 19:51 79 94 05/20/18 19:46 76 96 05/20/18 19:41 76 97 05/20/18 19:38 98.3 F 78 22 135/65 135/65 97 05/20/18 19:36 73 96 05/20/18 19:34 79 94 05/20/18 19:31 84 100 05/20/18 19:26 80 96 05/20/18 19:23 96 H 93 05/20/18 19:21 75 94 05/20/18 19:16 80 96 05/20/18 19:14 91 H 93 05/20/18 19:11 75 96 05/20/18 19:06 81 93 05/20/18 19:04 83 94 05/20/18 19:01 84 98 05/20/18 18:56 77 94 05/20/18 18:52 71 132/71 05/20/18 18:51 70 93 05/20/18 18:50 70 94 05/20/18 18:41 81 86 05/20/18 18:40 60 73 L 05/20/18 18:36 85 100 05/20/18 18:31 62 69 L 05/20/18 18:26 91 H 96 05/20/18 18:21 66 97 05/20/18 18:19 83 93 05/20/18 18:16 68 96 05/20/18 18:14 60 92 05/20/18 18:11 73 95 05/20/18 18:06 72 95 05/20/18 18:02 74 94 05/20/18 18:01 74 95 05/20/18 17:56 72 92 05/20/18 17:52 67 153/86 05/20/18 17:51 69 93 05/20/18 17:46 75 90 05/20/18 17:41 72 92 05/20/18 17:36 78 90 05/20/18 17:31 70 92 05/20/18 17:26 72 92 05/20/18 17:21 75 93 05/20/18 17:16 70 93 05/20/18 17:14 71 93 05/20/18 17:11 67 93 05/20/18 17:06 70 93 05/20/18 17:04 65 94 05/20/18 17:01 72 94 05/20/18 16:57 73 94 05/20/18 16:56 68 95 05/20/18 16:52 73 150/79 05/20/18 16:51 73 94 05/20/18 16:46 78 96 05/20/18 16:45 69 94 05/20/18 16:35 73 96 05/20/18 16:33 18 05/20/18 16:30 83 97 05/20/18 16:25 74 97 05/20/18 16:22 79 94 05/20/18 16:20 70 100 05/20/18 16:15 74 96 05/20/18 16:10 63 97 05/20/18 16:09 72 93 05/20/18 16:05 76 96 05/20/18 16:00 66 92 05/20/18 15:59 71 92 05/20/18 15:55 65 97 05/20/18 15:54 68 143/82 05/20/18 15:46 76 98 05/20/18 15:41 69 98 05/20/18 15:36 67 97 05/20/18 15:31 72 98 05/20/18 15:27 83 91 05/20/18 15:26 69 97 05/20/18 15:21 66 98 05/20/18 15:16 66 98 05/20/18 15:11 67 98 05/20/18 15:06 69 97 05/20/18 15:01 73 97 05/20/18 14:56 72 97 05/20/18 14:53 77 156/73 05/20/18 14:51 84 97 05/20/18 14:46 81 97 05/20/18 14:41 69 97 05/20/18 14:36 68 99 05/20/18 14:30 73 97 05/20/18 14:25 73 97 05/20/18 14:20 72 95 05/20/18 14:15 70 93 05/20/18 14:10 74 93 05/20/18 14:09 74 94 05/20/18 14:05 77 94 05/20/18 14:04 76 94 05/20/18 14:00 84 95 05/20/18 13:56 76 94 05/20/18 13:55 76 93 05/20/18 13:52 80 114/58 05/20/18 13:50 80 94 05/20/18 13:45 77 94 05/20/18 13:40 76 94 05/20/18 13:35 75 94 05/20/18 13:34 76 94 05/20/18 13:30 76 93 05/20/18 13:25 77 91 05/20/18 13:21 83 93 05/20/18 13:20 68 96 05/20/18 13:15 79 93 05/20/18 13:10 82 93 05/20/18 13:07 77 93 05/20/18 13:05 76 93 05/20/18 13:00 77 94 05/20/18 12:55 79 93 05/20/18 12:53 75 121/65 05/20/18 12:52 75 94 05/20/18 12:50 75 93 05/20/18 12:45 72 95 05/20/18 12:44 71 92 05/20/18 12:40 67 96 05/20/18 12:37 87 94 05/20/18 12:35 68 100 05/20/18 12:30 67 98 05/20/18 12:25 67 98 05/20/18 12:20 65 97 05/20/18 12:15 70 98 05/20/18 12:10 65 100 05/20/18 12:05 77 98 05/20/18 12:00 93 H 98 05/20/18 11:55 75 97 05/20/18 11:51 68 140/90 05/20/18 11:50 83 97 05/20/18 11:31 74 98 05/20/18 11:26 74 98 05/20/18 11:21 78 171/98 97 05/20/18 11:16 67 98 05/20/18 11:11 76 98 05/20/18 11:07 69 167/100 05/20/18 11:06 70 98 05/20/18 11:01 80 97 05/20/18 10:56 76 97 05/20/18 10:52 74 161/85 05/20/18 10:51 76 98 05/20/18 10:46 72 95 05/20/18 10:41 67 96 05/20/18 10:39 86 94 05/20/18 10:37 74 142/90 05/20/18 10:36 70 96 05/20/18 10:31 65 97 05/20/18 10:26 68 95 05/20/18 10:24 69 139/95 05/20/18 10:23 66 94 05/20/18 10:22 61 141/89 05/20/18 10:21 75 96 05/20/18 10:17 75 94 05/20/18 10:16 74 95 05/20/18 10:11 67 94 05/20/18 10:06 97.1 F L 70 20 160/84 160/84 95 05/20/18 10:05 70 93 05/20/18 09:32 85 135/95 05/20/18 09:30 18 135/95 05/20/18 09:01 71 147/97 05/20/18 08:46 77 162/103 05/20/18 08:31 75 164/92 05/20/18 08:16 88 152/83 05/20/18 08:12 74 100 05/20/18 08:07 71 100 05/20/18 08:02 78 144/83 99 05/20/18 07:57 78 98 05/20/18 07:52 72 98 05/20/18 07:51 67 151/83 05/20/18 07:36 98.6 F 71 20 151/83 98 05/20/18 07:33 70 154/89 05/20/18 07:31 74 98 05/20/18 07:30 71 165/102 Intake and Output 05/20/18 05/20/18 05/21/18 14:59 22:59 06:59 Output Total 200 Balance -200 Output: Urine 200 Void 200 Other: Total, Output Amount 50 # Voids Void 1 Weight 160 lb 15.987 oz Patient Weight 08/14/17 06:59 Weight 160 lb 15.987 oz - Exam Breasts: Present: normal Cardiovascular: Present: Regular rate Lungs: Present: Normal air movement Abdomen: Present: normal appearance, soft Uterus: Present: normal, firm, fundal height below umbilicus Extremities: Present: normal Deep Tendon Reflex Grade: Normal +2 Incision: Present: normal, dry, intact, dressed - Labs Labs: Abnormal lab results 08/13/17 08/13/17 Range/Units 07:50 07:50 Creatinine 0.4 L (0.7-1.2) mg/dL Lactate Dehydrogenase 260 H (91-180) units/L U Epithel Cells (Auto) 14.0 H (0-13.0) /HPF
[2017-08-14] MEDS ORDERED: BOOSTRIX IM ONE (06:00)
[2017-08-14] MEDS: ceFAZolin 1 GM in NACL 0.9% 20 ML IV SCH ×2 (07:55→16:08)
[2017-08-14 10:48] LABS: Hemoglobin 9.8 gm/dl (10.1-14.3)
[2017-08-14] MEDS: PERCOCET 5/325 PO PRN ×2 (12:02→20:00)
[2017-08-14] MEDS: COLACE PO SCH (21:29)
[2017-08-14] MEDS: FEOSOL PO SCH (21:29)
[2017-08-15] MEDS: PERCOCET 5/325 PO PRN ×2 (01:44→10:05)
--- NOTE | 2017-08-15 07:47 | Discharge Summary ---
<NATELIBBY Jamal - Last Filed: 08/15/17 07:43> Providers - Providers Date of Admission: 08/13/17 07:33 Date of discharge: 08/15/17 (pt desires d/c home) Attending physician: ROLO MOLINA 08/13/17 23:47 Consult to Manager Proposal [CONS] Routine Reason For Exam: Primary care physician: ROLO MOLINA Hospitalization Reason for admission: labor Condition: Good Pertinent studies: postop H&H 9.8/28, pre-e labs NL Procedures: c/s Hospital course: labor, c/s for nonreassuring status, uncomplicated course. Disposition: - TO HOME OR SELFCARE - Discharge Diagnoses (1) HTN (hypertension) Status: Acute Qualifiers: Hypertension type: essential hypertension Qualified Code(s): I10 - Essential (primary) hypertension (2) delivery delivered Status: Acute (3) Smoker Status: Chronic Core Measure Documentation - Palliative Care Palliative Care/ Comfort Measures: Not Applicable - Core Measures Any of the following diagnoses?: none Exam - Constitutional Vitals: Temp Pulse Resp BP Pulse Ox 98.2 F 90 20 122/73 87 08/15/17 00:49 08/15/17 00:49 08/15/17 00:49 08/15/17 00:49 08/15/17 00:49 General appearance: Present: no acute distress, well-nourished - EENT Eyes: Present: PERRL ENT: hearing intact, clear oral mucosa - Neck Neck: Present: supple, normal ROM - Respiratory Respiratory effort: normal Respiratory: bilateral: CTA - Cardiovascular Heart Sounds: Present: S1 & S2. Absent: rub, click - Extremities Extremities: pulses symmetrical, No edema Peripheral Pulses: within normal limits - Abdominal General gastrointestinal: Present: soft, non-tender, non-distended, normal bowel sounds Female genitourinary: Present: normal - Integumentary Integumentary: Present: clear, warm, dry - Musculoskeletal Musculoskeletal: gait normal, strength equal bilaterally - Psychiatric Psychiatric: appropriate mood/affect, intact judgment & insight - Neurologic Neurologic: CNII-XII intact, moves all extremities - Additional findings Additional findings: Fundus firm, lochia scant, incision D&I, VSSAF (htn on no medication, 138/100 highest documented b/p since delivery.) Plan Activity: advance as tolerated Diet: regular Wound: open to air, keep clean and dry Follow up with: ROLO MOLINA MD [Primary Care Provider] - 7 Days (Congratulations! Please call [phone] to schedule an incision and b/p check in 1 week. Call for any compliants of headache, upper abdominal pain or changes in your vision. Call for any other questions or concerns. ) Forms: [facility] Discharge Summary, Discharge Signature Page Prescriptions: oxyCODONE /ACETAMINOPHEN [Percocet 5/325 mg] 1 - 2 tab PO Q4HR PRN #30 tablet PRN Reason: Pain <TANO,FEI D - Last Filed: 08/15/17 15:55> Providers - Providers Date of Admission: 08/13/17 07:33 Attending physician: ROLO MOLINA 08/13/17 23:47 Consult to Manager Proposal [CONS] Routine Reason For Exam: Primary care physician: ROLO MOLINA Hospitalization - Discharge Diagnoses (1) 35 weeks gestation of Status: Acute (2) contractions Status: Acute (3) Smoker Status: Chronic (4) Late care Status: Acute (5) Hypertension affecting in third trimester Status: Chronic Exam - Constitutional Vitals: Late entry; Attempted to see heidy ~830a, she was not in her room. her baby was in the holding nursery, Entry on placed erroneously Temp Pulse Resp BP Pulse Ox 98.1 F 86 20 133/87 95 08/15/17 08:06 08/15/17 08:06 08/15/17 10:05 08/15/17 08:06 08/15/17 08:06
[2017-08-15 08:40] VITALS: BP 133/87
[2017-08-15] MEDS: COLACE PO SCH (10:04)
[2017-08-15] MEDS: FEOSOL PO SCH (10:04)
== END 2017-08-15 16:30 | disposition home or self-care (01) | DRG 765 ==
LOC: TRG 05:42 → OBSVTOIN 07:33 → LD 07:33 → OB 08-14 00:50
PROVIDERS: ADMIT Obstetrics & Gynecology; ATTEND Obstetrics & Gynecology
PROC: 10D00Z1 Extraction of Products of Conception, Low, Open Approach (ICD-10-PCS; principal; 2017-08-13)
DX: O76 Abnormality in fetal heart rate and rhythm complicating labor and delivery (principal); O60.14X0 Preterm labor third trimester with preterm delivery third trimester, not applicable or unspecified; R71.0 Precipitous drop in hematocrit; Z3A.35 35 weeks gestation of pregnancy; O16.4 Unspecified maternal hypertension, complicating childbirth; F17.210 Nicotine dependence, cigarettes, uncomplicated; O99.334 Smoking (tobacco) complicating childbirth; Z37.0 Single live birth; Z82.49 Family history of ischemic heart disease and other diseases of the circulatory system; Z90.721 Acquired absence of ovaries, unilateral; Z88.6 Allergy status to analgesic agent; Z79.899 Other long term (current) drug therapy
CPT/HCPCS: 36415; 59025; 76815; 81001; 82565; 83615; 84450; 84460; 84550; 85014; 85018; 85027; 86850; 86900; 86901; 87116; 88307; 96360; 96361; C1765; J0595; J0690; J0702; J1170; J1885; J2270; J2370; J2405; J2590; J2704; J2765; J3010; J3105; J7120; J7121